=== PATIENT | male | born 1940 | race Caucasian/White ===

== ENCOUNTER → 2017-11-05 | Outpatient (CLI) | payer MEDICARE, OTHER ==
[~2017-11-05] MED LIST: ALBU90OI6 INH; ASPI81EC PO; Flonase 0.05% N16 GM; MOMENI; MONT10T PO; PRED1 PO; QVAR7.3 G1 IH
[2017-11-05 10:14] LABS: Source, Urine Clean Catch
[2017-11-05 13:06] LABS: Bilirubin, Urine Neg (Neg); Blood, Urine Neg (Neg); Glucose Qualitative, Urine Neg (Neg); Ketones, Urine Neg (Neg); Leukocyte Esterase, Urine Neg (Neg); Nitrite, Urine Neg (Neg); Protein, Urine Neg (Neg); Urobilinogen, Urine NORM (Normal); pH, Urine 6.5 (5.0-8.0)
[2017-11-05 13:19] LABS: Appearance, Urine Clear (Clear); Color, Urine Yellow (P-Yellow)
== END | disposition home or self-care (01) ==
LOC: LAB 10:13
PROVIDERS: Internal Medicine
DX: R30.0 Dysuria (principal)
CPT/HCPCS: 81003

== ENCOUNTER 2019-02-24 07:00 | Day surgery (SDC) | payer MEDICARE, OTHER ==
[~2019-02-24] VITALS: Ht 185.4 cm; Wt 111.0 kg
--- NOTE | 2019-02-24 08:22 | NUR ---
02/24/19 0822 Myra Roman O2 10L VIA NON REBREATHER
== END 2019-02-24 09:03 | disposition home or self-care (01) ==
LOC: ORSCSDS 07:00
PROVIDERS: Surgery
PROC: 0DBL8ZX Excision of Transverse Colon, Via Natural or Artificial Opening Endoscopic, Diagnostic (ICD-10-PCS; principal; 2019-02-24 08:15)
PROC: 0DBN8ZX Excision of Sigmoid Colon, Via Natural or Artificial Opening Endoscopic, Diagnostic (ICD-10-PCS; principal; 2019-02-24 08:15)
PROC: 0DBP8ZX Excision of Rectum, Via Natural or Artificial Opening Endoscopic, Diagnostic (ICD-10-PCS; principal; 2019-02-24 08:15)
PROC: 0DBK8ZX Excision of Ascending Colon, Via Natural or Artificial Opening Endoscopic, Diagnostic (ICD-10-PCS; principal; 2019-02-24 08:15)
DX: Z86.010 Personal history of colon polyps (principal); Z12.11 Encounter for screening for malignant neoplasm of colon; K63.5 Polyp of colon; D12.2 Benign neoplasm of ascending colon; K62.1 Rectal polyp; D12.3 Benign neoplasm of transverse colon; K63.89 Other specified diseases of intestine; G47.33 Obstructive sleep apnea (adult) (pediatric); Z87.891 Personal history of nicotine dependence; E66.9 Obesity, unspecified; Z68.34 Body mass index [BMI] 34.0-34.9, adult; K57.30 Diverticulosis of large intestine without perforation or abscess without bleeding; Z79.82 Long term (current) use of aspirin; Z79.899 Other long term (current) drug therapy
CPT/HCPCS: 88305; J0461; J2405; J2704; J7120

== ENCOUNTER 2022-05-20 12:07 | Day surgery (SDC) | payer MEDICARE, OTHER ==
[~2022-05-20] VITALS: Ht 185.4 cm; Wt 118.7 kg
== END 2022-05-20 14:46 | disposition home or self-care (01) ==
LOC: ORSCSDS 12:07
PROVIDERS: Surgery
PROC: 0DBK8ZX Excision of Ascending Colon, Via Natural or Artificial Opening Endoscopic, Diagnostic (ICD-10-PCS; principal; 2022-05-20 13:30)
PROC: 0DBL8ZX Excision of Transverse Colon, Via Natural or Artificial Opening Endoscopic, Diagnostic (ICD-10-PCS; principal; 2022-05-20 13:30)
DX: Z12.11 Encounter for screening for malignant neoplasm of colon (principal); Z86.010 Personal history of colon polyps; D12.3 Benign neoplasm of transverse colon; D12.2 Benign neoplasm of ascending colon; K57.30 Diverticulosis of large intestine without perforation or abscess without bleeding; Z87.891 Personal history of nicotine dependence; E66.9 Obesity, unspecified; Z68.34 Body mass index [BMI] 34.0-34.9, adult
CPT/HCPCS: 88305; J2704; J7120

== ENCOUNTER 2025-03-25 00:26 | Emergency (ER) | payer OTHER ==
[~2025-03-25] VITALS: Ht 185.4 cm; Wt 112.5 kg
[2025-03-25 01:25] LABS: BASOPHILS ABSOLUTE AUTO 0.02 K/mm3 (0.00-0.23); BASOPHILS PERCENT AUTO 0 % (0-2); EOSINOPHILS ABSOLUTE AUTO 0.06 K/mm3 (0.00-0.68); EOSINOPHILS PERCENT AUTO 1 % (0-6); Hematocrit 45.6 % (37.0-53.0); Hemoglobin 15.5 g/dL (13.5-17.5); IMMATURE GRAN ABSOLUTE AUTO 0.01 K/mm3 (0.00-0.10); IMMATURE GRAN PERCENT AUTO 0 % (0-1); LYMPHOCYTES ABSOLUTE AUTO 0.21 K/mm3 (0.84-5.20); LYMPHOCYTES PERCENT AUTO 3 % (21-46); MONOCYTES ABSOLUTE AUTO 0.27 K/mm3 (0.16-1.47); MONOCYTES PERCENT AUTO 4 % (4-13); Mean Corpuscular HGB Conc 34.0 g/dL (31.5-36.5); Mean Corpuscular Volume 93 fL (80-100); NEUTROPHILS ABSOLUTE AUTO 7.18 K/mm3 (1.96-9.15); NEUTROPHILS PERCENT AUTO 93 % (41-73); NRBC ABSOLUTE 0.00 K/mm3 (0.00-0.02); NRBC Auto 0.0 /100 WBC (0.0-0.2); Platelet Count 175 K/mm3 (150-400); RDW Coefficient Variation 13.1 % (11.7-14.2); RDW Standard Deviation 44.2 fL (35.1-46.3)
[2025-03-25 01:37] LABS: Alanine Aminotransfer (ALT/SGP 20.0 U/L (12-78); Albumin, Blood 3.7 g/dL (3.4-5.0); Albumin/Globulin Ratio 1.1 (0.8-1.8); Anion Gap 8.0 mmol/L (3-11); Aspartate Aminotrans (AST/SGOT 24.0 U/L (12-37); Bilirubin, Total 0.9 mg/dL (0.1-1.0); Blood Urea Nitrogen 17.0 mg/dL (8-24); CO2, Blood 24.0 mmol/L (21-32); Calcium, Blood 8.3 mg/dL (8.5-10.1); Chloride, Blood 107.0 mmol/L (98-108); Creatinine, Blood 1.26 mg/dL (0.60-1.20); Globulin, Blood 3.3 g/dL (2.2-4.0); Glucose, Blood 144.0 mg/dL (70-99); Potassium, Blood 4.2 mmol/L (3.5-5.5); Sodium, Blood 135.0 mmol/L (136-145); Total Protein, Blood 7.0 g/dL (6.4-8.2)
[2025-03-25 02:05] LABS: pH Blood Venous 7.34 (7.34-7.37)
[2025-03-25] MEDS ORDERED: Ipratropium/Albuterol SulF 2.5-0.5MG/3 ML Amp INH ONE (02:40)
[2025-03-25] MEDS ORDERED: CefTRIAXone Sodium 1,000 MG in NS 100 ML IV ONE (02:40)
[2025-03-25 03:03] LABS: Influenza A, PCR NEGATIVE (NEGATIVE); Influenza B, PCR NEGATIVE (NEGATIVE); Resp Syncytial Virus, PCR NEGATIVE (NEGATIVE); SARS-Cov-2 (COVID-19) PCR, MMC NEGATIVE (NEGATIVE)
[2025-03-25 06:26] VITALS: BP 121/62
[2025-03-25] MEDS ORDERED: AZIT250 PO (06:32)
[2025-03-25] MEDS ORDERED: PRED20 PO (06:34)
== END 2025-03-25 06:42 | disposition home or self-care (01) ==
LOC: ER 00:26
PROVIDERS: Emergency Medicine; Student in an Organized Health Care Education/Training Program
DX: J44.1 Chronic obstructive pulmonary disease with (acute) exacerbation (principal); Z79.51 Long term (current) use of inhaled steroids; Z87.891 Personal history of nicotine dependence
CPT/HCPCS: 71045; 71260; 80053; 82803; 83880; 84484; 85025; 85379; 87637; 93005; 93010; 96374-59; 96375-59; 99285-25; A9270; J0696; J2919; Q9967

== ENCOUNTER 2025-04-24 10:37 | Day surgery (SDC) | payer OTHER ==
[~2025-04-24] VITALS: Ht 185.4 cm; Wt 111.3 kg
[~2025-04-24 10:37] MED LIST changes: +AZIT250 PO; +Lidocaine HCl 2% 10 ML SDA ONE; +NS 500 ML IV ONE; +PRED20 PO
[2025-04-24] MEDS ORDERED: CeFAZolin Sodium 2,000 MG VIAL ONE (10:50)
[2025-04-24] MEDS ORDERED: NS 500 ML IV ONE (10:51)
[2025-04-24] MEDS ORDERED: Midazolam HCL 1 MG/ML 5MLVIAL ONE (11:15)
--- NOTE | 2025-04-24 11:20 | NUR ---
04/24/25 1120 Geneva Goff TIME OUT DONE PRIOR TO LOCAL INJECTION AT THE OP SITE. PT TOLERATED INJECTIONS WELL.
[2025-04-24 12:11] VITALS: BP 136/83
== END 2025-04-24 12:30 | disposition home or self-care (01) ==
LOC: ORSCSDS 10:37
PROVIDERS: Orthopaedic Surgery
PROC: 0MB30ZZ Excision of Right Elbow Bursa and Ligament, Open Approach (ICD-10-PCS; principal; 2025-04-24 12:00)
PROC: 0XBB0ZX Excision of Right Elbow Region, Open Approach, Diagnostic (ICD-10-PCS; principal; 2025-04-24 12:00)
PROC: 0RBL0ZZ Excision of Right Elbow Joint, Open Approach (ICD-10-PCS; principal; 2025-04-24 12:00)
DX: R22.31 Localized swelling, mass and lump, right upper limb (principal); M67.431 Ganglion, right wrist; I10 Essential (primary) hypertension; G47.33 Obstructive sleep apnea (adult) (pediatric); E78.5 Hyperlipidemia, unspecified; Z87.891 Personal history of nicotine dependence; Z79.899 Other long term (current) drug therapy
CPT/HCPCS: 88304; J0690; J2003; J2250; J7040

== ENCOUNTER → 2025-06-21 | Outpatient (CLI) | payer OTHER ==
[~2025-06-21] MED LIST changes: -Lidocaine HCl 2% 10 ML SDA ONE; -NS 500 ML IV ONE
== END ==
LOC: LAB SHORT 09:53 → LAB 09:53
DX: J18.9 Pneumonia, unspecified organism (principal)
CPT/HCPCS: 87070; 87205